=== PATIENT | male | born 1960 ===

== ENCOUNTER 2017-06-29 11:52 | Emergency (ER) | payer BC ==
[2017-06-29] MEDS ORDERED: SODIUM CHLORIDE 0.9% 1000ML 1,000 ML IV ONE ×2 (14:32→17:30)
[2017-06-29 15:01] LABS: HEMATOCRIT 32 % (39-53); MEAN CORPUSCULAR HGB CONC 34.9 gm/dl (32.0-36.0); MEAN CORPUSCULAR VOLUME 88 fL (80-100)
[2017-06-29] MEDS ORDERED: SODIUM CHLORIDE 0.9% FLUSH 10 ML SOL IV PRN (15:04)
[2017-06-29 15:06] LABS: CALCIUM 7.8 mg/dl (8.5-10.1)
[2017-06-29 15:10] VITALS: TEMP 97.8; O2SAT 98
[2017-06-29] MEDS ORDERED: POTASSIUM CHLORIDE 10 MEQ TER PO ONE (15:47)
[2017-06-29] MEDS ORDERED: POTASSIUM CHLORIDE 10 MEQ TER ONE (15:49)
[2017-06-29 16:27] LABS: BASOPHILS % (MANUAL) 1 % (0-3); EOSINOPHILS % (MANUAL) 12 % (0-9); LYMPHOCYTES % (MANUAL) 15 % (10-50)
[2017-06-29 16:28] LABS: NORMAL RBCS NORMAL RBCS; PLATELET MORPHOLOGY COMMENT LARGE PLT'S
[2017-06-29 17:05] VITALS: BP 122/63; PULSE 72; RESP 20
== END 2017-06-29 18:15 | disposition short-term general hospital (02) ==
LOC: ED 11:52
DX: K51.90 Ulcerative colitis, unspecified, without complications (principal); D69.6 Thrombocytopenia, unspecified
CPT/HCPCS: 36415; 74000; 80048; 85007; 85027; 85651; 96365; 96366; 99284; 99285